=== PATIENT | male | born 1990 | race African-American/Black ===

== ENCOUNTER 2017-05-01 23:45 | Observation (INO) | payer SELFPAY ==
--- NOTE | ~2017-05-01 | HP ---
Unit #: [id number] #: [id number] Patient: ARASH RESTREPO [id number] [facility] [address] [place], [place] [address] [id number] MR#: [id number] NAME: ARASH RESTREPO ROOM: 216 Age: 27 Sex: M Admission Date: 05/02/2017 : 1990 Attending Physician: Yaron Caruso M.D. Primary Care Physician: No Primary Care Physician HISTORY AND PHYSICAL CHIEF COMPLAINT Nausea, vomiting. HISTORY OF PRESENT ILLNESS The patient is a 27-year-old male who presented to [facility] with complaint of nausea and vomiting. 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 Can't recall if he actually ate anything. The patient states he didn't drink enough water. He suddenly began to feel ill and when the nausea and vomiting did not stop he came to the emergency department. In the ED, he was noted to have a creatinine of 4.1 and was started on IV fluids. PAST MEDICAL HISTORY None. PAST SURGICAL HISTORY None. SOCIAL HISTORY The patient denies alcohol, tobacco and illicit drug use. FAMILY HISTORY The patient denies any significant family history. MEDICINES None. HOME MEDICATIONS None. ALLERGIES No known drug allergies. REVIEW OF SYSTEMS Ten point review of systems obtained, negative except as per HPI. PHYSICAL EXAMINATION VITAL SIGNS: Temperature 98.9, pulse 71, blood pressure 140/64. GENERAL: 27-year-old male in no acute distress, appears stated age. HEENT: Pupils equally round. Extraocular movements intact. Mucous membranes dry. NECK: Supple. No JVD, no lymphadenopathy. CARDIAC: Regular rate and rhythm. No murmurs, gallops or rubs. LUNGS: Clear to auscultation bilaterally. Unit #: [id number] #: [id number] Patient: ARASH RESTREPO ABDOMEN: Nontender, nondistended. Positive bowel sounds. EXTREMITIES: No clubbing, cyanosis or edema. They are warm and dry. PSYCH: Alert and oriented x3. Affect is appropriate. NEUROLOGICAL: Cranial nerves II-XII intact grossly. The patient moves all extremities equally and with purpose. SKIN: No rashes, bruises or ulcers. MUSCULOSKELETAL: No muscle or joint pain, no muscle or joint swelling. DIAGNOSTIC STUDIES LABORATORY: Creatinine is 4.1 with a GFR of 21, bicarb is 16, CK 2875. ASSESSMENT AND PLAN Acute kidney injury secondary to volume depletion: The patient has been started on aggressive fluid resuscitation and creatinine will be followed. Dictated by Bereket Carlson/alicia TD: 05/03/2017 08:24 JOB #: [id number] HISTORY AND PHYSICAL Page 1 of 1 X Yaron Caruso MD X HISTORY AND PHYSICAL
[2017-05-02 01:08] LABS: BASOPHIL% 0.2 % (0-2.5); HEMATOCRIT 53.9 % (38.0-50.0); HEMOGLOBIN 17.3 gm/dL (13.0-16.0); LYMPHOCYTE# 1.1 X10e3 (1.0-3.5); LYMPHOCYTE% 7.8 % (17.0-45.0); MEAN CORPUSCULAR HEMOGLOBIN 30.1 PG (28-34); MEAN PLATELET VOLUME 10.1 FL (6.5-11.5); MONOCYTE# 0.5 X10e3 (0-1.0); MONOCYTE% 3.4 % (3.0-12.0); NEUTROPHIL# 12.3 X10e3 (1.5-7.1); NEUTROPHIL% 88.6 % (40-75); PLATELET COUNT 285 X10e3 (140-420); RED BLOOD COUNT 5.74 X10e (3.90-5.60); RED CELL DISTRIBUTION WIDTH 13.3 % (11.0-15.5); WHITE BLOOD COUNT 13.9 X10e3 (4.0-10.5)
[2017-05-02 01:13] LABS: DIFF IND NO
[2017-05-02 01:42] LABS: URINE SOURCE CLEAN CATCH
[2017-05-02 01:47] LABS: URINE APPEARANCE TURBID; URINE BLOOD 1+ (NEG); URINE COLOR DK YELLOW; URINE GLUCOSE NEG (NEG); URINE KETONE 1+ (NEG); URINE LEUKOCYTE ESTERASE NEG (NEG); URINE NITRATE NEG (NEG); URINE PROTEIN 2+ (NEG); URINE SPECIFIC GRAVITY 1.023 (1.003-1.035)
[2017-05-02 01:49] LABS: CULTURE INDICATED? YES; URINE BACTERIA AUWI NEG (NEGATIVE); URINE SQUAMOUS EPITHELIAL CELL MOD /[HPF]
[2017-05-02 01:57] LABS: ALBUMIN SERUM 6.9 g/dL (3.5-5.0); BILIRUBIN, DIRECT 0.3 mg/dL (0.0-0.2); BILIRUBIN,INDIRECT 1.9 mg/dL (0.0-0.9); BILIRUBIN,TOTAL 2.2 mg/dL (0.2-2.0); BUN/CREATININE RATIO 8.04; CALCIUM SERUM 10.2 mg/dL (8.4-10.2); CREATININE SERUM 4.1 mg/dL (0.6-1.4); GLOM FILT RATE Estimated 21.6 mL/min (>60); POTASSIUM 4.3 mmol/L (3.5-5.1); PROTEIN TOTAL SERUM 10.6 g/dL (6.0-8.3)
[2017-05-02 02:06] LABS: URINE BILIRUBIN POS (NEG)
[2017-05-02] MEDS ORDERED: NO MEDICATIONS (06:20)
[2017-05-02 08:55] LABS: BASOPHIL% 0.1 % (0-2.5); HEMATOCRIT 44.9 % (38.0-50.0); LYMPHOCYTE# 1.9 X10e3 (1.0-3.5); LYMPHOCYTE% 14.4 % (17.0-45.0); MEAN CELL VOLUME 91.9 FL (83-96); MEAN CORPUSCULAR HEMOGLOBIN 30.3 PG (28-34); MEAN CORPUSCULAR HGB CONC 32.9 g/dL (30-36); MEAN PLATELET VOLUME 9.2 FL (6.5-11.5); MONOCYTE# 1.3 X10e3 (0-1.0); MONOCYTE% 10.2 % (3.0-12.0); NEUTROPHIL# 9.7 X10e3 (1.5-7.1); NEUTROPHIL% 75.3 % (40-75); PLATELET COUNT 271 X10e3 (140-420); RED BLOOD COUNT 4.88 X10e (3.90-5.60); RED CELL DISTRIBUTION WIDTH 12.9 % (11.0-15.5); WHITE BLOOD COUNT 12.9 X10e3 (4.0-10.5)
[2017-05-02 08:57] LABS: HEMOGLOBIN 14.8 gm/dL (13.0-16.0)
[2017-05-02 08:59] LABS: DIFF IND NO
[2017-05-02 09:19] LABS: BILIRUBIN,TOTAL 1.4 mg/dL (0.2-2.0); BUN/CREATININE RATIO 14.8; CALCIUM SERUM 9.3 mg/dL (8.4-10.2); CREATININE SERUM 2.5 mg/dL (0.6-1.4); GLOM FILT RATE Estimated 39.3 mL/min (>60); POTASSIUM 4.4 mmol/L (3.5-5.1)
[2017-05-02 19:39] LABS: BUN/CREATININE RATIO 21.53; CALCIUM SERUM 9.1 mg/dL (8.4-10.2); CREATININE SERUM 1.3 mg/dL (0.6-1.4); GLOM FILT RATE Estimated 86.7 mL/min (>60); POTASSIUM 4.7 mmol/L (3.5-5.1)
== END 2017-05-02 21:35 | disposition home or self-care (01) | DRG 641 ==
LOC: CED 23:45 → CEDOF 05-02 02:40 → C2A 05-02 04:54
PROVIDERS: Emergency Medicine; Internal Medicine
DX: E86.9 Volume depletion, unspecified (principal); N17.9 Acute kidney failure, unspecified; M62.82 Rhabdomyolysis
CPT/HCPCS: 36415; 80048; 80053; 80076; 81003; 82550; 83690; 85025; 87086; 96361; 96374; 96375; 99284; G0378; J1885; J2405